=== PATIENT | male | born 1945 | race Caucasian/White ===

== ENCOUNTER 2024-05-22 11:34 | Observation (INO) ==
[~2024-05-22 11:34] MED LIST: NS 0.45% 1000 ml BAG 1,000 ML IV SCH; Naloxone 0.4 mg VIAL 0.4 mg/ml 1 ml VIAL IV PRN; Ondansetron 4 mg VIAL 2 MG/ML 2 ml VIAL IV PRN; fentaNYL 100 mcg/2 ml 50 MCG/ML VIAL IV PRN
[2024-05-22] MEDS ORDERED: Propofol 10 MG/ML 20 ML BTL ONE ×3 (12:13→16:28)
[2024-05-22] MEDS ORDERED: KETAMINE HCL 10 MG/ML 20 ml VIAL (200 MG) ONE (12:14)
[2024-05-22] MEDS ORDERED: Lidocaine 2% PF 5 ML VIAL ONE ×2 (12:14→14:32)
[2024-05-22 12:29] LABS: Rapid COVID-19 Molecular Undetected (Undetected)
[2024-05-22] MEDS: Acetaminophen IV 1 GM/100ML 1,000 MG/100 ML BAG IV ONE (12:57)
[2024-05-22] MEDS: Buffered Lidocaine 1% SYRIN 1 ml INTRADERM ONE (12:57)
[2024-05-22] MEDS ORDERED: ceFAZolin 2 GM PREMIX 2 GM/50 ML BAG ONE (12:59)
[2024-05-22] MEDS ORDERED: Tranexamic Acid 1 GM/100ML BAG 2,000 MG/200 ML BAG IV ONE (12:59)
[2024-05-22] MEDS ORDERED: Magnesium Hydroxide LIQ 30 ML UDC PO PRN (13:02)
[2024-05-22] MEDS ORDERED: Morphine 2 MG/ML SYRINGE IV PRN (13:02)
[2024-05-22] MEDS ORDERED: Lactulose 30 ml UDC PO PRN (13:02)
[2024-05-22] MEDS: Lactated Ringers 1000 ml BAG 1,000 ML IV SCH ×2 (13:02→20:53)
[2024-05-22] MEDS ORDERED: Calcium Carb (TUMS) 500 mg CHEW TAB PO PRN (13:02)
[2024-05-22] MEDS ORDERED: Ondansetron 4 mg VIAL 2 MG/ML 2 ml VIAL IV PRN (13:02)
[2024-05-22] MEDS ORDERED: Dexamethasone IV 4 MG/ML VIAL 1 ml VIAL ONE (13:44)
[2024-05-22] MEDS ORDERED: Midazolam 2 mg/2 ml VIAL 1 mg/ml 2 ml VIAL (2 mg) ONE ×2 (13:44→14:32)
[2024-05-22] MEDS ORDERED: Famotidine IV 10 MG/ML 2 ml VIAL (20 mg) ONE (13:44)
[2024-05-22] MEDS ORDERED: ROPIVACAINE 5 MG/ML 30 ML BTL (0.5%) ONE ×2 (13:44→14:19)
[2024-05-22] MEDS ORDERED: fentaNYL 100 mcg/2 ml 50 MCG/ML VIAL ONE (13:46)
[2024-05-22] MEDS ORDERED: Sterile Water for Inj 10 ML ONE (14:46)
[2024-05-22] MEDS ORDERED: Ondansetron 4 mg VIAL 2 MG/ML 2 ml VIAL ONE (16:00)
[2024-05-22] MEDS: Magnesium Hydroxide LIQ 30 ML UDC PO SCH (20:52)
[2024-05-22] MEDS: ceFAZolin 2 GM PREMIX 2 GM/50 ML BAG IV SCH (21:41)
[2024-05-22] MEDS: Latanoprost 0.005% 2.5 ml BTL LEFT EYE SCH (21:41)
[2024-05-22] MEDS: Ondansetron ODT 4 mg TAB 4 MG TAB PO PRN (23:01)
[2024-05-23 06:12] LABS: Hematocrit 36.6 % (38-53); Hemoglobin 12.3 g/dL (13.2-16.3); Mean Platelet Volume 8.3 fL (7.5-11.2); Platelet Count 164 10^3/uL (150-450)
[2024-05-23 06:28] LABS: Calcium 8.9 mg/dL (8.6-10.3); Creatinine, Serum 0.76 mg/dL (0.67-1.17); Potassium 5.4 mmol/L (3.5-5.0); eGFR CKD-EPI 90.9 (>60)
[2024-05-23] MEDS: Vitamin THERAPEUTIC TAB PO SCH (08:49)
[2024-05-23 14:00] VITALS: BP 105/51
== END 2024-05-23 16:30 | disposition home or self-care (01) ==
LOC: OR 11:34 → SSU 20:32 → INTOOBSV 20:32
PROVIDERS: ADMIT Orthopaedic Surgery Adult Reconstructive Orthopaedic Surgery; ATTEND Orthopaedic Surgery Adult Reconstructive Orthopaedic Surgery